=== PATIENT | female | born 1980 | race Caucasian/White ===

== ENCOUNTER 2017-05-30 14:32 | Emergency (ER) | payer SELFPAY | END 2017-05-30 15:00 | disposition home or self-care (01) | LOC: MADERS 14:32 | DX: K02.9 Dental caries, unspecified (principal) | CPT/HCPCS: 99282 ==

== ENCOUNTER 2017-09-28 10:33 | Emergency (ER) | payer MEDICAID, SELFPAY ==
[~2017-09-28 10:33] MED LIST: Sodium Chloride 0.9% 1,000 ML BAG ONE
[2017-09-28] MEDS ORDERED: Ondansetron HCl/PF 4 MG/2 ML Vial ONE ×2 (11:05→14:44)
[2017-09-28] MEDS ORDERED: Pantoprazole 40 MG VIAL ONE (11:05)
[2017-09-28] MEDS ORDERED: Morphine 10 MG/ML VIAL ONE (11:05)
[2017-09-28 11:21] LABS: #Basophils 0.1 thou/uL (0.0-0.2); #Lymphocytes 1.4 thou/uL (1.20-3.40); #Monocytes 0.3 thou/uL (0.11-0.59); #Neutrophils 8.5 thou/uL (1.40-6.50); %Basophils 0.6 % (0.0-1.0); %Lymphocytes 13.8 % (21.0-51.0); %Monocytes 2.6 % (0.0-10.0); Hemoglobin 15.7 g/dL (12.0-16.0); Mean Corpuscular HGB CONC 33.9 g/dL (32.0-36.0); Mean Corpuscular Hemoglobin 32.5 pg (27.0-31.0); Mean Corpuscular Volume 95.8 fl (81.0-99.0); Mean Platelet Volume 8.7 fL (7.4-10.4); Platelet Count 262 thou/uL (130-400); RBC Distribution Width 11.3 % (11.5-14.5); Red Blood Cell (RBC) Count 4.81 mill/uL (4.20-5.40); White Blood Cell (WBC) Count 10.3 thou/uL (4.8-10.8)
[2017-09-28 11:28] LABS: Pregnancy Test - Urine (BHCG) Negative (Negative); Pregu Control Background? CLEAR/WHITE (CLR/WHITE); Pregu Control Bar Appear? YES (CONTROL BAR); Specific Gravity 1.025 (1.002-1.036)
[2017-09-28 11:29] LABS: Clarity Hazy (Clear)
[2017-09-28 11:30] LABS: Bilirubin Small (Negative); Blood, Urine Moderate (Negative); Glucose, Urine (Dipstick) Negative (Negative); Leukocyte Negative (Negative); Nitrite Negative (Negative); Protein, Urine (Dipstick) 100 mg/dL (Neg-Trace); Specific Gravity, Urine 1.025 (1.005-1.030); Urobilinogen 0.2 mg/dL (0.2-1.0); pH, Urine 6.5 (5.0-9.0)
[2017-09-28 11:31] LABS: Bacteria/HPF Rare-Few HPF (None Seen); WBC/HPF 0-3 HPF (0-3)
[2017-09-28 11:39] LABS: ALT (SGPT) 38 U/L (8-55); AST (SGOT) 25 U/L (5-34); Albumin 4.8 g/dL (3.5-5.0); Alkaline Phosphatase 47 U/L (40-150); Anion Gap 16 mmol/L (10-20); BUN (Urea Nitrogen) 15 mg/dL (7.0-18.7); Bilirubin, Total 0.3 mg/dL (0.2-1.2); Calc. Creatinine Clearance 0 mL/min (70-130); Calcium 10.2 mg/dL (7.8-10.44); Carbon Dioxide 25 mmol/L (22-29); Chloride 103 mmol/L (98-107); Estimated GFR-MDRD 70; Globulin 3.5 g/dL (2.4-3.5); Glucose 126 mg/dL (70-105); Lipase 15 U/L (8-78); Potassium 4.1 mmol/L (3.5-5.1); Protein, Total 8.3 g/dL (6.0-8.3); Sodium 140 mmol/L (136-145)
--- NOTE | 2017-09-28 13:27 | RAD ---
ACUTE ABDOMINAL SERIES: INDICATIONS: History of nausea and vomiting. FINDINGS: The lungs are clear. The cardiomediastinal silhouette is normal. No pneumoperitoneum is evident. T he bowel gas pattern is unobstructed. No suspicious calcifications are evident. No acute osseous ab normality is demonstrated. Small phleboliths are seen within the right lower hemipelvis. IMPRESSION: No acute abnormality. POS: [facility]
[2017-09-28] MEDS ORDERED: Dicyclomine 10 MG CAP ONE (13:59)
== END 2017-09-28 14:50 | disposition home or self-care (01) ==
LOC: MADERS 10:33
DX: R11.2 Nausea with vomiting, unspecified (principal); R19.7 Diarrhea, unspecified
CPT/HCPCS: 74022; 80053; 81003; 81015; 81025; 83605; 83690; 85025; 96361; 96374; 96375; 96376; C9113; J2270; J2405

== ENCOUNTER 2018-10-27 12:31 | Emergency (ER) | payer MEDICAID, SELFPAY | END 2018-10-27 12:55 | disposition home or self-care (01) | LOC: MADERS 12:31 | DX: B30.9 Viral conjunctivitis, unspecified (principal); J06.9 Acute upper respiratory infection, unspecified; Z79.899 Other long term (current) drug therapy | CPT/HCPCS: 99282 ==